=== PATIENT | female | born 1945 | race African-American/Black ===

== ENCOUNTER 2019-05-28 14:30 | Emergency (ER) | payer OTHER, BC ==
[2019-05-28 14:37] VITALS: BP 140/61; PULSE 61; TEMP 97.5; BMI 29.3
--- NOTE | 2019-05-28 15:31 | PDOC ---
History of Present Illness - General History Source: Patient Exam Limitations: No Limitations - History of Present Illness Initial Comments: 05/28/19 15:24 73 yo F with a hx of I&D in 2013 on the right side of her back presents with an abscess located on the right side of her back at the same site as her previous I&D. Per the patient, the pain has been ongoing for 1.5 weeks. Denies trauma or insect bite to the area. Per the patient, she states it a throbbing pain that worsens when palpated. Denies the following: fever, chills, chest pain, SOB, dysuria, ears/nose/throat pain, nausea, vomiting, abdominal pain, midline vertebral tenderness, and leg pain/swelling. Allergies: NKDA <Antonino Tang - Last Filed: 05/28/19 15:22> <Aga Riggs - Last Filed: 05/31/19 08:21> - General Chief Complaint: Abscess Boil Stated Complaint: ABSCESS TO BACK Time Seen by Provider: 05/28/19 14:35 Past History - Past Medical History Anemia: No Asthma: No Cardiac Disorders: No COPD: No Diabetes: No HTN: Yes Hypercholesterolemia: No - Psycho Social/Smoking Cessation Hx Smoking Status: No Smoking History: Never smoked Have you smoked in the past 12 months: No Number of Cigarettes Smoked Daily: 0 Information on smoking cessation initiated: No Hx Alcohol Use: No Drug/Substance Use Hx: No Substance Use Type: None <Antonino Tang - Last Filed: 05/28/19 15:22> <Aga Riggs - Last Filed: 05/31/19 08:21> - Past Medical History Allergies/Adverse Reactions: Allergies Allergy/AdvReac Type Severity Reaction Status Date / Time Penicillins Allergy Hives Verified 05/28/19 14:31 Home Medications: Ambulatory Orders Atenolol [Tenormin -] 25 mg PO DAILY 05/28/19 Review of Systems - Review of Systems Able to Perform ROS?: Yes Constitutional: No: Chills, Fever Respiratory: No: Cough, Shortness of Breath Cardiac (ROS): No: Chest Pain, Edema ABD/GI: No: Nausea, Vomiting, Abdominal cramping Musculoskeletal: Yes: Back Pain Integumentary: Yes: Change in Color, Erythema Neurological: No: Headache, Numbness, Weakness, Dizziness Hematologic/Lymphatic: No: Anemia, Easy Bleeding, Easy Bruising All Other Systems: Reviewed and Negative <KeelyAga Brittneyalexandru - Last Filed: 05/31/19 08:21> *Physical Exam - Vital Signs Last Vital Signs Temp Pulse Resp BP Pulse Ox 97.5 F L 61 18 140/61 100 05/28/19 14:30 05/28/19 14:30 05/28/19 14:30 05/28/19 14:30 05/28/19 14:30 - Physical Exam General Appearance: Yes: Nourished, Appropriately Dressed <ClydeAntonino - Last Filed: 05/28/19 15:22> - Vital Signs Last Vital Signs Temp Pulse Resp BP Pulse Ox 97.5 F L 61 18 140/61 100 05/28/19 14:30 05/28/19 14:30 05/28/19 14:30 05/28/19 14:30 05/28/19 14:30 - Physical Exam HEENT: positive: EOMI, ASIA, Normal ENT Inspection, Normal Voice Neck: positive: Supple. negative: Tender Respiratory/Chest: positive: Lungs Clear Cardiovascular: positive: Regular Rhythm, Regular Rate Gastrointestinal/Abdominal: positive: Soft. negative: Tender Musculoskeletal: positive: Normal Inspection Extremity: positive: Normal Capillary Refill, Normal Inspection, Normal Range of Motion Integumentary: positive: Normal Color, Dry, Warm, Other (mid back with 4x6cm area of erythema, tenderness and fluctuance.) Neurologic: positive: Alert <RiggsAga Elizabeth - Last Filed: 05/31/19 08:21> Procedures - Incision and Drainage I&D Site: Right: Other (back) Betadine cleansed: Yes Anesthesia: 1% Lidocaine Volume(ml): 3 Blade Size: 11 Attempts: 1 Plain Packing: Yes Complications: none Dressing: Yes <ClydeAntonino - Last Filed: 05/28/19 15:22> Discharge <ClydeAntonino - Last Filed: 05/28/19 15:22> - Discharge Information Problems reviewed: Yes - Admission No <KeelyAgaevert Johnson - Last Filed: 05/31/19 08:21> - Discharge Information Clinical Impression/Diagnosis: Abscess of back Condition: Stable Disposition: HOME - Follow up/Referral Referrals: Pullano,Kain E [Primary Care Provider] - Emergency Dept,Physician, MD [Emergency Physician] - - Patient Discharge Instructions Patient Printed Discharge Instructions: DI for Incision and Drainage of a Skin Abscess Additional Instructions: Wound dressed with topical Bacitracin and sterile gauze as well as iodoform packing to facilitate the draining. Follow up with the Emergency department here within 48-72 hours for a wound check and packing removal. clean with soap and water daily - do not scrub. Return sooner to the ED for any worsening pain, redness, streaking (red lines), swelling, fever or chills. Keep the wound clean and as dry as possible. Do not immerse or soak the wound in water. This means no swimming, washing dishes (unless thick rubber gloves are us ed), baths, or hot tubs until the stitches are removed or after about two weeks if absorbable suture material was used. Leave original bandages on the wound for the first 24 hours. After this time, showering or rinsing is recommended, rather than bathing. the first day, remove old bandages and gently cleanse the wound with soap and water. Cleansing twice a day prevents buildup of debris. - Post Discharge Activity
--- NOTE | 2019-05-28 15:37 | PDOC ---
Attending Attestation - Resident Resident Name: ClydeAntonino - ED Attending Attestation I have performed the following: I have examined & evaluated the patient, The case was reviewed & discussed with the resident, I agree w/resident's findings & plan - HPI HPI: 05/28/19 15:36 73 yo F with a hx of I&D in 2013 on the right side of her back presents with an abscess located on the right side of her back at the same site as her previous I&D. Per the patient, the pain has been ongoing for 1.5 weeks. At the site of where her bra hooks. Denies recent trauma or insect bite to the area. Per the patient, she states it a throbbing pain that worsens when palpated. Denies the following: fever, chills, chest pain, SOB, nausea, vomiting, abdominal pain, midline vertebral tenderness, and leg pain/swelling. 05/28/19 15:38 - Physicial Exam PE: 05/28/19 15:36 General: NAD, well appearing HEENT: EOMI, PERRL. oral mucosa moist, clear. Resp: no respiratory distress. Vascular: 2+ radialis pulses symmetric and equal. Back: no midline tenderness. 4x6cm cutaneous abscess with mild erythema, +fluctuance and mild tenderness. no crepitus. Neuro: alert MSK: soft compartments, Cap refill <2 sec. 2+ radialis pulses bilaterally and symmetric. FDP/FDS intact. no joint tenderness. FROM. Skin: color normal color, warm and well perfused. +4x6 cm abscess with mild erythema, +fluctuance and mild tenderness. 05/28/19 15:40 - Medical Decision Making 05/28/19 15:38 Vital Signs Temp Pulse Resp BP Pulse Ox 97.5 F L 61 18 140/61 100 05/28/19 14:30 05/28/19 14:30 05/28/19 14:30 05/28/19 14:30 05/28/19 14:30 Vital signs reviewed within normal limits, no fevers, nontoxic or septic appearing. Back examination consistent with cutaneous abscess in her mid back similar to her previous presentation see procedure note by the resident, I was present for the duration of procedure and performed under my supervision. Incision and drainage was performed, copious loculations deloculated as well as copious purulence that was expelled with manual decompression. Iodoform packing was placed. Procedure was uncomplicated. No wound culture obtained as unlikely to affect management. Patient without symptoms to suggest severe infection, no antibiotics indicated as incision and drainage is appropriate for simple abscess , Return in 2 days for wound recheck and packing removal. Topical warm compresses, [id number] analgesia, keeping the wound clean and dry, monitoring for signs of infection reviewed with the patient. Made aware of impression and plan, agreeable. 05/28/19 15:42
== END 2019-05-28 15:45 | disposition home or self-care (01) ==
LOC: FER 14:30
PROC: 0H96XZZ Drainage of Back Skin, External Approach (ICD-10-PCS; principal; 2019-05-28)
DX: L02.212 Cutaneous abscess of back [any part, except buttock and flank] (principal); I10 Essential (primary) hypertension; Z88.0 Allergy status to penicillin
CPT/HCPCS: 99282-25

== ENCOUNTER 2019-05-31 12:51 | Emergency (ER) | payer OTHER, BC ==
[2019-05-31 13:03] VITALS: BP 138/68; PULSE 58; TEMP 98.8; BMI 29.9
--- NOTE | 2019-05-31 13:06 | PDOC ---
Suture Removal/Wound Check HPI - History of Present Illness Chief Complaint: Revisit,Wound Recheck Stated Complaint: WOUND CHECK PACKING REMOVAL Time Seen by Provider: 05/31/19 12:54 - Onset of Previous Treatment Comment:: 05/31/19 13:03 73 F who was here 3 days ago for I&D of abscess on back, returning for packing removal and wound check. States that the pain has subsided. No noticeable drainage from wound. No fevers, no new swelling or discomfort. Past History - Past Medical History Allergies/Adverse Reactions: Allergies Allergy/AdvReac Type Severity Reaction Status Date / Time Penicillins Allergy Hives Verified 05/28/19 14:31 Home Medications: Ambulatory Orders Atenolol [Tenormin -] 25 mg PO DAILY 05/28/19 Anemia: No Asthma: No Cardiac Disorders: No COPD: No Diabetes: No HTN: No Hypercholesterolemia: No - Psycho Social/Smoking Cessation Hx Smoking Status: No Smoking History: Never smoked Have you smoked in the past 12 months: No Number of Cigarettes Smoked Daily: 0 Information on smoking cessation initiated: No Hx Alcohol Use: No Drug/Substance Use Hx: No Substance Use Type: None *Review of Systems - Review of Systems 05/31/19 13:03 "GENERAL/CONSTITUTIONAL: No fever or chills. No weakness. HEAD, EYES, EARS, NOSE AND THROAT: No change in vision. No ear pain or discharge. No sore throat. CARDIOVASCULAR: No chest pain, no shortness of breath, no loss of consciousness RESPIRATORY: No cough, wheezing, or hemoptysis. GASTROINTESTINAL: No nausea, vomiting, diarrhea or constipation. GENITOURINARY: No dysuria, frequency, or change in urination. MUSCULOSKELETAL: No joint or muscle swelling or pain. No neck or back pain. SKIN: No rash NEUROLOGIC: No vertigo, no change in strength/sensation. ENDOCRINE: No increased thirst. No abnormal weight change. HEMATOLOGIC/LYMPHATIC: No anemia, easy bleeding, or history of blood clots. ALLERGIC/IMMUNOLOGIC: No hives or skin allergy. *Physical Exam - Vital Signs Last Vital Signs Temp Pulse Resp BP Pulse Ox 98.8 F 58 L 20 138/68 100 05/31/19 12:51 05/31/19 12:51 05/31/19 12:51 05/31/19 12:51 05/31/19 12:51 - Physical Exam 05/31/19 13:03 "GENERAL: Awake, alert, and fully oriented, in no acute distress. HEAD: No signs of trauma EYES: PERRLA, EOMI, sclera anicteric, conjunctiva clear ENT: Auricles normal inspection, hearing grossly normal, nares patent, oropharynx clear without exudates. Moist mucosa NECK: Nontender, no stepoffs, Normal ROM, supple, no lymphadenopathy, JVD, or masses LUNGS: Breath sounds equal, clear to auscultation bilaterally. No wheezes, and no crackles HEART: Regular rate and rhythm, normal S1 and S2, no murmurs, rubs or gallops ABDOMEN: Soft, nontender, normoactive bowel sounds. No guarding, no rebound. No masses EXTREMITIES: Normal range of motion, no edema. No clubbing or cyanosis. No cords, erythema, or tenderness NEUROLOGICAL: Cranial nerves II through XII intact. 5/5 strength and sensation in all extremities, Normal speech, normal gait, normal cerebellar function SKIN: + 1cm incision on back with packing in place, no drainage, no surrounding erythema, indurance, or fluctuance Medical Decision Making - Medical Decision Making 05/31/19 13:04 73 F with I&D of abscess 3 days ago. No s/s active infection. Packing removed. - Wound dressed w/ bacitracin Pt is well appearing, with normal vitals. Clinically stable for DC at this time. I discussed the physical exam findings, ancillary test results and final diagnoses with the patient. I answered all of the patient's questions. The patient was satisfied with the care received and felt comfortable with the discharge plan and treatment plan. The patient agrees to follow up with the primary care physician within 24-72 hours. Discharge - Discharge Information Problems reviewed: Yes Clinical Impression/Diagnosis: Wound check, abscess Disposition: HOME - Follow up/Referral - Patient Discharge Instructions Patient Printed Discharge Instructions: DI for Incision and Drainage of a Skin Abscess Additional Instructions: Keep your wound clean and dry. You may apply antibiotic ointment twice daily until it heals. You may have a cyst under the skin that is causing recurrent abscesses. Once your wound has healed, consult a heat regulator for further evaluation. If you experience worsening swelling, drainage, redness, fevers, pain, or any other concerning symptoms, return to the ER immediately. - Post Discharge Activity
== END 2019-05-31 15:50 | disposition home or self-care (01) ==
LOC: FER 12:51
DX: Z48.02 Encounter for removal of sutures (principal)
CPT/HCPCS: 99281-25

== ENCOUNTER 2023-10-06 14:12 | Emergency (ER) | payer OTHER, BC ==
[2023-10-06 14:25] VITALS: BP 135/70; PULSE 60; RESP 16; TEMP 98.6; BMI 30.4
[2023-10-06 16:28] LABS: HEMATOCRIT 39.8 % (32.4-45.2); HEMOGLOBIN 12.6 G/dL (10.7-15.3); MCH 25.6 pg (25.7-33.7); MCHC 31.7 g/dl (32.0-36.0); MEAN CELL VOLUME 80.8 fl (80-96); MEAN PLT VOLUME 10.3 fl (7.5-11.1); PLATELET COUNT 169.8 10^3/uL (134-434); RBC 4.93 10^6/uL (3.60-5.2); RDW 15.9 % (11.6-15.6); WHITE BLOOD COUNT 4.7 10^3/uL (4.0-10.8)
[2023-10-06 16:42] LABS: INR 0.93 (0.83-1.09); PROTHROMBIN TIME (PATIENT) 10.6 SEC (9.7-13.0)
[2023-10-06 16:45] LABS: ACTIVATED PTT 32.2 SECONDS (25.2-36.5)
[2023-10-06 16:47] LABS: ALBUMIN 4.5 g/dl (3.4-5.0); BILIRUBIN,TOTAL 0.5 mg/dl (0.2-1); CALCIUM 9.9 mg/dl (8.5-10.1); CREATININE 1.1 mg/dl (0.6-1.3); POTASSIUM 3.5 mmol/L (3.5-5.1); TOT PROT 6.6 g/dl (6.4-8.2)
== END 2023-10-06 17:14 | disposition home or self-care (01) ==
LOC: FER 14:12
DX: R20.2 Paresthesia of skin (principal); R20.0 Anesthesia of skin
CPT/HCPCS: 36415; 70450-TC; 80053; 85027; 85610; 85730; 93005; 99285-25